=== PATIENT | male | born 1970 | race Caucasian/White ===

== ENCOUNTER 2020-03-17 10:27 | Inpatient (IN) ==
[2020-03-17] MEDS ORDERED: *HR* OxyCODONE Immed Rel 5 MG TABLET PO PRN (10:40)
[2020-03-17] MEDS ORDERED: *HR* HYDROmorphone 2 MG TABLET PO PRN (10:40)
[2020-03-17] MEDS ORDERED: *HR* Labetalol 20 MG/4 ML SYRINGE IVP PRN (10:40)
[2020-03-17] MEDS ORDERED: Pregabalin 75 MG CAPSULE PO ONE (10:40)
[2020-03-17] MEDS ORDERED: Acetaminophen IV 1,000 MG/100 ML INFUS..BTL IVPB ONE (10:40)
[2020-03-17] MEDS ORDERED: *HR* Promethazine 25 MG/ML VIAL IVP PRN (10:40)
[2020-03-17] MEDS ORDERED: *HR* Propofol 200 MG/20 ML VIAL IVP ONE (10:41)
[2020-03-17] MEDS ORDERED: *HR* Midazolam HCl 2 MG/2 ML VIAL ONE (10:41)
[2020-03-17] MEDS ORDERED: *HR* FentaNYL (PF) 100 MCG/2 ML VIAL ONE ×2 (10:41→12:52)
[2020-03-17] MEDS ORDERED: Lidocaine HCL 4 ML Topical Solution (Laryng-O-Jet Kit Sterile Pak) TP ONE (10:42)
[2020-03-17] MEDS ORDERED: *HR* Succinylcholine 200 MG/10 ML VIAL IVP ONE (10:42)
[2020-03-17] MEDS ORDERED: Ondansetron 4 MG/2 ML VIAL ONE (10:42)
[2020-03-17] MEDS ORDERED: Dexamethasone 4 MG/ML VIAL ONE (10:42)
[2020-03-17] MEDS ORDERED: Lidocaine -MPF 2% 2 ML VIAL ONE (10:42)
[2020-03-17] MEDS ORDERED: *HR* Rocuronium Bromide 50 MG/5 ML VIAL ONE (10:42)
[2020-03-17] MEDS ORDERED: Ringers Solution, Lactated 1,000 ML IVC SCH (11:00)
[2020-03-17] MEDS ORDERED: Lidocaine OINT 35.44 GM TUBE TP ONE (11:35)
[2020-03-17] MEDS ORDERED: Famotidine 20 MG TABLET PO ONE (11:45)
[2020-03-17] MEDS ORDERED: Famotidine 20 MG/2 ML VIAL IVP ONE (11:51)
[2020-03-17] MEDS ORDERED: *HR* PHENYLEPHRINE 1,000 MCG/10 ML SYRINGE IVP ONE (12:39)
[2020-03-17] MEDS ORDERED: *HR* Magnesium Sulfate 1 GM/2 ML VIAL ONE (12:51)
[2020-03-17] MEDS ORDERED: Ketorolac 30 MG/ML VIAL ONE (13:36)
[2020-03-17] MEDS ORDERED: *HR* HYDROMORPHONE 2 MG/ML VIAL ONE (13:49)
[2020-03-17] MEDS: *HR* HYDROmorphone (PF) 1 MG/ML SYRINGE IVP PRN ×2 (14:05→14:15)
[2020-03-17] MEDS ORDERED: Naloxone 0.4 MG/ML INJ IVP PRN (17:25)
[2020-03-17] MEDS: 0.9 % Sodium Chloride 1,000 ML IVC SCH (18:26)
[2020-03-17] MEDS: *HR* Heparin 5,000 UNIT/ML VIAL SQ SCH ×2 (18:27→21:27)
[2020-03-17] MEDS: Gabapentin 300 MG CAPSULE PO SCH ×2 (18:27→21:33)
[2020-03-17] MEDS: Ketorolac 15 MG/ML VIAL IVP SCH ×2 (18:28→23:53)
[2020-03-17] MEDS: Ipratropium/Albuterol Neb 3 ML IH SCH ×3 (19:45→23:41)
[2020-03-17] MEDS: Sennosides/Docusate Sodium TABLET PO SCH (21:26)
[2020-03-17] MEDS: Sulfamethoxazole/Trimeth DS 1 EACH TABLET PO SCH (21:26)
[2020-03-17] MEDS: Famotidine 20 MG TABLET PO SCH (21:26)
[2020-03-18 02:42] LABS: Hematocrit 34.7 % (37.5-50.1); Mean Corpuscular HGB Conc 34.6 g/dL (31.6-35.5); Mean Corpuscular Hemoglobin 29.3 pg (28.0-33.3); Mean Corpuscular Volume 84.8 fL (83.0-100.0); Mean Platelet Volume 8.5 fL (9.4-12.4); Platelet Count 524 K/mcL (140-400); Red Blood Count 4.09 M/mcL (4.19-5.50); Red Cell Distribution Width 12.6 % (11.5-14.5); White Blood Count 15.8 K/mcL (4.3-11.1)
[2020-03-18 02:59] LABS: % Iron Saturation 6 % (20-55); BUN/Creatinine Ratio 17 (6-26); Blood Urea Nitrogen 10 mg/dL (6-20); Carbon Dioxide 26 mEq/L (23-29); Chloride 104 mEq/L (98-107); Glucose 137 mg/dL (70-105); Iron 17 mcg/dL (65-175); Magnesium 2.2 mg/dL (1.6-2.6); Osmolality,Calculated 289 (280-300); Potassium 4.3 mEq/L (3.5-5.1); Sodium 139 mEq/L (136-145); Transferrin 207 mg/dL (203-362); eGFR For African Americans > 60 (> 60); eGFR For Non-African Americans > 60 (> 60)
[2020-03-18] MEDS: Ipratropium/Albuterol Neb 3 ML IH SCH ×6 (03:20→23:26)
[2020-03-18] MEDS: *HR* HYDROcodone/Acet 5/325 mg TABLET PO PRN (04:04)
[2020-03-18] MEDS: *HR* Heparin 5,000 UNIT/ML VIAL SQ SCH ×3 (06:09→22:09)
[2020-03-18] MEDS: Ketorolac 15 MG/ML VIAL IVP SCH ×3 (06:09→16:59)
[2020-03-18] MEDS: 0.9 % Sodium Chloride 1,000 ML IVC SCH (06:10)
[2020-03-18] MEDS: Sennosides/Docusate Sodium TABLET PO SCH ×2 (08:18→20:20)
[2020-03-18] MEDS: Famotidine 20 MG TABLET PO SCH ×2 (08:18→20:20)
[2020-03-18] MEDS: *HR* Buprenorphine HCl 2 MG SUBLINGUAL TABLET SL SCH (08:19)
[2020-03-18] MEDS: Gabapentin 300 MG CAPSULE PO SCH ×3 (08:19→20:20)
[2020-03-18] MEDS: *HR* Buprenorphine HCl 8 MG TAB.SUBL SL SCH (08:19)
[2020-03-18] MEDS: Sulfamethoxazole/Trimeth DS 1 EACH TABLET PO SCH ×2 (08:30→20:20)
[2020-03-18] MEDS ORDERED: (Buprenorphine Hcl/Naloxone Hcl [Suboxone 8 Mg-2 Mg SL) SL SCH (09:00)
[2020-03-18] MEDS ORDERED: *HR* Buprenorphine HCl 8 MG TAB.SUBL SL SCH (09:00)
[2020-03-18] MEDS ORDERED: Iron Sucrose Complex 400 MG in 0.9 % Sodium Chloride 250 ML IVPB ONE (09:31)
[2020-03-19] MEDS: Ketorolac 15 MG/ML VIAL IVP SCH ×5 (00:09→23:56)
[2020-03-19] MEDS: Ipratropium/Albuterol Neb 3 ML IH SCH ×6 (04:01→23:03)
[2020-03-19] MEDS: *HR* Heparin 5,000 UNIT/ML VIAL SQ SCH ×3 (05:55→20:48)
[2020-03-19] MEDS: Sulfamethoxazole/Trimeth DS 1 EACH TABLET PO SCH ×2 (07:45→20:51)
[2020-03-19] MEDS: *HR* HYDROcodone/Acet 5/325 mg TABLET PO PRN ×2 (07:45→20:52)
[2020-03-19] MEDS: Gabapentin 300 MG CAPSULE PO SCH ×3 (07:45→20:51)
[2020-03-19] MEDS: Famotidine 20 MG TABLET PO SCH ×2 (07:45→20:52)
[2020-03-19] MEDS: Sennosides/Docusate Sodium TABLET PO SCH ×2 (07:45→20:52)
[2020-03-19] MEDS: *HR* Buprenorphine HCl 2 MG SUBLINGUAL TABLET SL SCH (07:46)
[2020-03-19] MEDS: *HR* Buprenorphine HCl 8 MG TAB.SUBL SL SCH (07:46)
[2020-03-19] MEDS: Acetylcysteine 10% 2 ML INHSOL IH SCH ×4 (11:38→23:04)
[2020-03-20] MEDS: Ipratropium/Albuterol Neb 3 ML IH SCH ×6 (03:57→23:53)
[2020-03-20] MEDS: Acetylcysteine 10% 2 ML INHSOL IH SCH ×3 (03:58→11:22)
[2020-03-20] MEDS: *HR* Heparin 5,000 UNIT/ML VIAL SQ SCH ×3 (05:35→21:11)
[2020-03-20] MEDS: Ketorolac 15 MG/ML VIAL IVP SCH ×2 (05:35→12:10)
[2020-03-20] MEDS: Sennosides/Docusate Sodium TABLET PO SCH ×2 (07:39→21:12)
[2020-03-20] MEDS: Gabapentin 300 MG CAPSULE PO SCH ×3 (07:39→21:11)
[2020-03-20] MEDS: Famotidine 20 MG TABLET PO SCH ×2 (07:39→21:12)
[2020-03-20] MEDS: *HR* Buprenorphine HCl 8 MG TAB.SUBL SL SCH (07:39)
[2020-03-20] MEDS: Sulfamethoxazole/Trimeth DS 1 EACH TABLET PO SCH ×2 (07:39→21:12)
[2020-03-20] MEDS: *HR* Buprenorphine HCl 2 MG SUBLINGUAL TABLET SL SCH (07:39)
[2020-03-20] MEDS: *HR* HYDROcodone/Acet 5/325 mg TABLET PO PRN ×3 (08:36→21:11)
[2020-03-20 10:04] LABS: Hematocrit 30.8 % (37.5-50.1); Mean Corpuscular HGB Conc 33.4 g/dL (31.6-35.5); Mean Corpuscular Hemoglobin 28.5 pg (28.0-33.3); Mean Corpuscular Volume 85.3 fL (83.0-100.0); Mean Platelet Volume 8.3 fL (9.4-12.4); Platelet Count 444 K/mcL (140-400); Red Blood Count 3.61 M/mcL (4.19-5.50); Red Cell Distribution Width 13.2 % (11.5-14.5); White Blood Count 11.9 K/mcL (4.3-11.1)
[2020-03-20 10:24] LABS: BUN/Creatinine Ratio 17 (6-26); Blood Urea Nitrogen 23 mg/dL (6-20); Calcium 8.8 mg/dL (8.6-10.3); Carbon Dioxide 25 mEq/L (23-29); Chloride 97 mEq/L (98-107); Glucose 100 mg/dL (70-105); Osmolality,Calculated 280 (280-300); Potassium 3.6 mEq/L (3.5-5.1); Sodium 133 mEq/L (136-145); eGFR For African Americans > 60 (> 60); eGFR For Non-African Americans 55 (> 60)
[2020-03-20 10:28] LABS: Hemoglobin 10.3 g/dL (12.9-16.9)
[2020-03-21 02:11] LABS: BUN/Creatinine Ratio 20 (6-26); Blood Urea Nitrogen 18 mg/dL (6-20); Calcium 9.1 mg/dL (8.6-10.3); Carbon Dioxide 24 mEq/L (23-29); Chloride 100 mEq/L (98-107); Glucose 98 mg/dL (70-105); Osmolality,Calculated 282 (280-300); Sodium 135 mEq/L (136-145); eGFR For African Americans > 60 (> 60); eGFR For Non-African Americans > 60 (> 60)
[2020-03-21] MEDS: Ipratropium/Albuterol Neb 3 ML IH SCH ×3 (03:33→11:09)
[2020-03-21] MEDS: *HR* Heparin 5,000 UNIT/ML VIAL SQ SCH (05:00)
[2020-03-21] MEDS: *HR* Buprenorphine HCl 8 MG TAB.SUBL SL SCH (07:56)
[2020-03-21] MEDS: Famotidine 20 MG TABLET PO SCH (07:56)
[2020-03-21] MEDS: Sulfamethoxazole/Trimeth DS 1 EACH TABLET PO SCH (07:56)
[2020-03-21] MEDS: *HR* HYDROcodone/Acet 5/325 mg TABLET PO PRN (07:56)
[2020-03-21] MEDS: Gabapentin 300 MG CAPSULE PO SCH (07:56)
[2020-03-21] MEDS: Sennosides/Docusate Sodium TABLET PO SCH (07:56)
[2020-03-21] MEDS: *HR* Buprenorphine HCl 2 MG SUBLINGUAL TABLET SL SCH (07:56)
[2020-03-21 10:36] VITALS: BP 113/70
== END 2020-03-21 11:45 | disposition home or self-care (01) | DRG 121 ==
LOC: SAMDAY 10:27 → 3NENU 14:52
PROVIDERS: ADMIT Thoracic Surgery (Cardiothoracic Vascular Surgery); ATTEND Thoracic Surgery (Cardiothoracic Vascular Surgery)